=== PATIENT | male | born 1945 | race Caucasian/White ===

== ENCOUNTER 2018-06-08 13:11 | Emergency (ER) | payer OTHER ==
[2018-06-08] MEDS ORDERED: ACETAMINOPHEN EXTRA STRENGTH 500 MG TABLET ONE (14:32)
[2018-06-08] MEDS ORDERED: CEFTRIAXONE SODIUM 1 GM ONE (14:32)
[2018-06-08] MEDS ORDERED: SODIUM CHLORIDE 0.9% 50 ML IV ONE (14:32)
[2018-06-08] MEDS ORDERED: ACETAMINOPHEN 325 MG TAB ONE (14:33)
[2018-06-08 14:37] LABS: BASOPHILS % (AUTO) 0.2 % (0.0-5.0); EOSINOPHILS % (AUTO) 0.1 % (0.0-8.0); HEMATOCRIT 46.5 % (42-54); LYMPHOCYTES % (AUTO) 3.9 % (21.0-51.0); MEAN CORPUSCULAR HEMOGLOBIN 33.5 pg (27.0-33.0); MEAN CORPUSCULAR HGB CONC 33.2 g/dL (32.0-36.0); MONOCYTES % (AUTO) 7.6 % (3.0-13.0); NEUTROPHILS % (AUTO) 88.2 % (40.0-77.0); NUCLEATED RED BLOOD CELLS 0.2 % (0.0-0.19); PLATELET COUNT (AUTO) 117 K/uL (130-400); RED CELL DISTRIBUTION WIDTH 13.7 % (11.0-15.5); WHITE BLOOD COUNT (AUTO) 3.7 K/uL (4.8-10.8)
[2018-06-08 14:46] LABS: CARBON DIOXIDE 26 mmol/L (21-32); CHLORIDE 99 mmol/L (101-111); CREATININE 1.2 mg/dL (0.5-1.5); GLOMERULAR FILTR. RATE CALC 63 mL/min (>60); GLUCOSE,RANDOM 228 mg/dL (70-105); POTASSIUM 4.4 mmol/L (3.5-5.1); SODIUM SERUM 135 mmol/L (136-145); UREA NITROGEN, BLOOD 14 mg/dL (7-18)
[2018-06-08 14:57] LABS: ALANINE AMINOTRANSFERASE 74 U/L (12-78); ALBUMIN 3.9 g/dL (3.5-5.0); ASPARTATE AMINOTRANSFERASE 66 U/L (10-37); BILIRUBIN,TOTAL 0.8 mg/dL (0.2-1.0); CREATINE KINASE, TOTAL 63 U/L (21-232); MYOGLOBIN 44 ng/mL (10-92); TOTAL PROTEIN, SERUM 7.5 g/dL (6.0-8.3); TROPONIN I < 0.04 ng/mL (0.00-0.06)
[2018-06-08] MEDS ORDERED: IPRATROPIUM/ALBUTEROL SULFATE 3 ML SOLUTION IH ONE (15:35)
[2018-06-08] MEDS ORDERED: LEVOFLOXACIN 500 MG/D5W 100 ML 100 ML ONE (15:36)
[2018-06-08] MEDS ORDERED: METHYLPREDNISOLONE SOD SUCC 125MG/2ML VIAL ONE (16:23)
== END 2018-06-08 16:48 | disposition home or self-care (01) ==
LOC: EDH 13:11
DX: J20.9 Acute bronchitis, unspecified (principal); E11.9 Type 2 diabetes mellitus without complications; I10 Essential (primary) hypertension; E78.5 Hyperlipidemia, unspecified; I48.91 Unspecified atrial fibrillation; Z87.891 Personal history of nicotine dependence
CPT/HCPCS: 36415; 71046; 80053; 82550; 83605; 83874; 84484; 85025; 87040 ×2; 87804 ×2; 93005; 94640; 96365; 96375; 99284; J0696; J1956; J2930

== ENCOUNTER → 2018-08-02 | Outpatient (CLI) | payer OTHER | END | disposition home or self-care (01) | LOC: RAH 07:36 | PROVIDERS: ATTEND Family Medicine | DX: K80.20 Calculus of gallbladder without cholecystitis without obstruction (principal) | CPT/HCPCS: 76700 ==

== ENCOUNTER 2021-06-04 09:01 | Observation (INO) | payer OTHER ==
[~2021-06-04] VITALS: Ht 177.8 cm; Wt 96.9 kg
[~2021-06-04 09:01] MED LIST: APIX5TAB PO; EMPA25TA PO; GEMF600T89 PO; ICOS1CAP PO; LISI20TA24 PO; METF-446 PO; PIOG30TA70 PO; ROSU10TA28 PO; TRAZ-185 PO
[2021-06-04 09:25] LABS: BASOPHILS % (AUTO) 0.4 % (0.0-5.0); EOSINOPHILS % (AUTO) 3.7 % (0.0-8.0); HEMATOCRIT 31.4 % (42-54); MEAN CORPUSCULAR HEMOGLOBIN 25.7 pg (27.0-33.0); MEAN CORPUSCULAR HGB CONC 30.3 g/dL (32.0-36.0); MEAN CORPUSCULAR VOLUME 85.1 fL (79-99); MONOCYTES % (AUTO) 9.9 % (3.0-13.0); NEUTROPHILS % (AUTO) 80.6 % (40.0-77.0); PLATELET COUNT (AUTO) 102 K/uL (130-400); RED BLOOD CELL COUNT(AUTO) 3.69 MIL/uL (4.50-6.20); RED CELL DISTRIBUTION WIDTH 26.7 % (11.0-15.5); WHITE BLOOD COUNT (AUTO) 2.4 K/uL (4.8-10.8)
[2021-06-04 09:32] LABS: CREATININE 1.2 mg/dL (0.5-1.5); POTASSIUM 3.3 mmol/L (3.5-5.1)
[2021-06-04 09:35] LABS: INR 1.19 (0.85-1.15); PROTHROMBIN TIME 12.8 SEC (9.6-11.6)
[2021-06-04 09:41] LABS: ALBUMIN 3.5 g/dL (3.5-5.0); BILIRUBIN,TOTAL 0.9 mg/dL (0.2-1.0); TOTAL PROTEIN, SERUM 6.2 g/dL (6.0-8.3)
[2021-06-04 10:02] LABS: EOSINOPHILS % (MANUAL) 1 % (1-6); LYMPHOCYTES % (MANUAL) 4 % (22-44); MAN.DIFF COMMENT-IMPRESSION MANUAL DIFFERENTIAL; MONOCYTES % (MANUAL) 6 % (2-9); SEGMENTED NEUTROPHILS % 89 % (40-70)
[2021-06-04 10:04] LABS: PLATELET MORPHOLOGY COMMENT DECREASED
[2021-06-04] MEDS ORDERED: ONDANSETRON 4MG INJ ONE (10:39)
[2021-06-04] MEDS ORDERED: MORPHINE 2 MG SYG ONE (10:39)
[2021-06-04] MEDS ORDERED: MORPHINE 2 MG SYG IVP ONE (11:00)
[2021-06-04] MEDS ORDERED: ONDANSETRON 4MG INJ IVP ONE (11:00)
[2021-06-04 12:19] LABS: CREATINE KINASE, TOTAL 204 U/L (21-232); MYOGLOBIN 257 ng/mL (10-92)
[2021-06-04] MEDS: TRAMADOL /APAP 37.5MG/325MG TAB PO PRN ×2 (14:39→22:37)
[2021-06-04 17:42] LABS: APPEARANCE BODY FLUID SLIGHTLY CLOUDY (CLEAR); COLOR,BODY FLUID YELLOW (LT YELLOW); SPECIMENTYPE,BODY FLUID ASCITES; TOTAL VOLUME,BODY FLUID 6500 mL
[2021-06-04 17:48] LABS: BODY FLUID RBC 384 /cu. mm.; BODY FLUID WBC 75 /cu. mm.
[2021-06-04 18:24] LABS: BF LYMPHOCYTE 36 %; BF MESOTHELIAL 1 %; BF OTHER CELLS 8
[2021-06-04] MEDS ORDERED: TEMAZEPAM 15 MG CAPSULE PO PRN (19:00)
[2021-06-04] MEDS ORDERED: ACETAMINOPHEN 325 MG SUPPOSITORY RC PRN (19:00)
[2021-06-04] MEDS ORDERED: ACETAMINOPHEN 325 MG TAB PO PRN (19:00)
[2021-06-04] MEDS: CEFTRIAXONE 1G VIAL IVP SCH (19:43)
[2021-06-04] MEDS: TRAZODONE HCL 50 MG TAB PO SCH (22:07)
[2021-06-05 00:59] LABS: APPEARANCE,URINE Clear (CLEAR); BILIRUBIN,URINE Negative (NEGATIVE); COLOR,URINE Yellow (YELLOW); GLUCOSE, URINE (UA) Negative (NEGATIVE); KETONES,URINE Negative (NEGATIVE); LEUKOCYTE ESTERASE ,URINE Negative (NEGATIVE); NITRATE,URINE Negative (NEGATIVE); OCCULT BLOOD,URINE Negative (NEGATIVE); PROTEIN,URINE Negative (NEGATIVE)
[2021-06-05 06:29] LABS: CREATININE 1.2 mg/dL (0.5-1.5)
[2021-06-05 06:32] LABS: POTASSIUM 2.9 mmol/L (3.5-5.1)
[2021-06-05 06:33] LABS: % IRON SATURATION 5.6 % (30-44)
[2021-06-05] MEDS ORDERED: KCL 20 MEQ ERTAB PO ONE (06:54)
[2021-06-05] MEDS ORDERED: POTASSIUM CHLORIDE 10% ELIXIR 20 MEQ/15 ML UDCUP PO PRN (07:00)
[2021-06-05] MEDS ORDERED: POTASSIUM CHLORIDE 20MEQ/100ML 100 ML IV PRN (07:00)
[2021-06-05] MEDS ORDERED: MAGNESIUM 2GM PREMIX 50ML 50 ML IV PRN (07:00)
[2021-06-05] MEDS ORDERED: LIDOCAINE HCL-MPF 1% 2ML VIAL IV PRN (07:00)
[2021-06-05 07:17] LABS: HEMATOCRIT 28.4 % (42-54); MEAN CORPUSCULAR HEMOGLOBIN 25.7 pg (27.0-33.0); MEAN CORPUSCULAR HGB CONC 30.6 g/dL (32.0-36.0); RED BLOOD CELL COUNT(AUTO) 3.38 MIL/uL (4.50-6.20); RED CELL DISTRIBUTION WIDTH 26.9 % (11.0-15.5); WHITE BLOOD COUNT (AUTO) 1.8 K/uL (4.8-10.8)
[2021-06-05] MEDS: TRAMADOL /APAP 37.5MG/325MG TAB PO PRN ×4 (10:00→23:21)
[2021-06-05] MEDS ORDERED: COMPOUND IV MISC 1 EACH IVSOLN MISC PRN (14:00)
[2021-06-05] MEDS ORDERED: IRON SUCROSE COMPLEX 100 MG in 0.9%NACL 50ML 50 ML IV SCH (14:00)
[2021-06-05] MEDS ORDERED: FUROSEMIDE 20 MG TABLET PO ONE (14:50)
[2021-06-05] MEDS ORDERED: FUROSEMIDE 20 MG TABLET ONE (16:13)
[2021-06-05 17:47] VITALS: BP 126/69
[2021-06-05 20:00] VITALS: BP 120/68
[2021-06-05] MEDS: FUROSEMIDE 20 MG TABLET PO SCH (20:21)
[2021-06-05] MEDS: CEFTRIAXONE 1G VIAL IVP SCH (20:21)
[2021-06-05] MEDS: SPIRONOLACTONE 25 MG TAB PO SCH (20:21)
[2021-06-05] MEDS: TRAZODONE HCL 50 MG TAB PO SCH (20:21)
[2021-06-05] MEDS: KCL 20 MEQ ERTAB PO PRN (20:24)
[2021-06-06] VITALS: BP 124/78
[2021-06-06 04:00] VITALS: BP 115/78
[2021-06-06 08:08] VITALS: BP 108/63
[2021-06-06 08:14] LABS: HEPATITIS Bs ANTIGEN SCREEN P Negative (Negative)
[2021-06-06 08:25] LABS: BASOPHILS % (AUTO) 0.4 % (0.0-5.0); EOSINOPHILS % (AUTO) 5.6 % (0.0-8.0); HEMATOCRIT 28.1 % (42-54); LYMPHOCYTES % (AUTO) 5.6 % (21.0-51.0); MEAN CORPUSCULAR HEMOGLOBIN 25.8 pg (27.0-33.0); MEAN CORPUSCULAR HGB CONC 30.2 g/dL (32.0-36.0); MEAN CORPUSCULAR VOLUME 85.4 fL (79-99); MONOCYTES % (AUTO) 12.1 % (3.0-13.0); NEUTROPHILS % (AUTO) 75.9 % (40.0-77.0); PLATELET COUNT (AUTO) 105 K/uL (130-400); RED BLOOD CELL COUNT(AUTO) 3.29 MIL/uL (4.50-6.20); RED CELL DISTRIBUTION WIDTH 26.8 % (11.0-15.5); WHITE BLOOD COUNT (AUTO) 2.5 K/uL (4.8-10.8)
[2021-06-06 08:34] LABS: CREATININE 1.1 mg/dL (0.5-1.5); POTASSIUM 3.1 mmol/L (3.5-5.1)
[2021-06-06 08:49] LABS: LYMPHOCYTES % (MANUAL) 6 % (22-44); MAN.DIFF COMMENT-IMPRESSION MANUAL DIFFERENTIAL; MONOCYTES % (MANUAL) 4 % (2-9); PLATELET MORPHOLOGY COMMENT SLIGHTLY DECREASED; SEGMENTED NEUTROPHILS % 90 % (40-70)
[2021-06-06] MEDS ORDERED: IRON SUCROSE COMPLEX 100 MG in 0.9%NACL 50ML 50 ML IV SCH (09:00)
[2021-06-06] MEDS: SPIRONOLACTONE 25 MG TAB PO SCH (09:10)
[2021-06-06] MEDS: KCL 20 MEQ ERTAB PO PRN (09:10)
[2021-06-06] MEDS: FUROSEMIDE 20 MG TABLET PO SCH (09:11)
[2021-06-06] MEDS ORDERED: SPIR25TA PO (11:29)
[2021-06-06] MEDS ORDERED: FURO20TA4 PO (11:29)
[2021-06-06] MEDS ORDERED: PANT40TA54 PO (11:29)
[2021-06-06 12:00] VITALS: BP 103/63
[2021-06-06 13:13] LABS: ALPHA-1-ANTITRYPSIN 139 mg/dL (101-187)
== END 2021-06-06 14:35 | disposition home or self-care (01) ==
LOC: EDH 09:01 → EDHIP 10:11 → 3CH 06-05 17:01
PROVIDERS: ADMIT Internal Medicine; ATTEND Internal Medicine
DX: R18.8 Other ascites (principal); Z20.822 Contact with and (suspected) exposure to COVID-19; E87.70 Fluid overload, unspecified; K74.60 Unspecified cirrhosis of liver; M25.552 Pain in left hip; I10 Essential (primary) hypertension; E11.9 Type 2 diabetes mellitus without complications; E78.5 Hyperlipidemia, unspecified; I48.91 Unspecified atrial fibrillation; E78.00 Pure hypercholesterolemia, unspecified; D61.818 Other pancytopenia; E66.9 Obesity, unspecified; K44.9 Diaphragmatic hernia without obstruction or gangrene; K57.90 Diverticulosis of intestine, part unspecified, without perforation or abscess without bleeding; K76.6 Portal hypertension; K80.20 Calculus of gallbladder without cholecystitis without obstruction; K82.8 Other specified diseases of gallbladder; M16.12 Unilateral primary osteoarthritis, left hip; M47.815 Spondylosis without myelopathy or radiculopathy, thoracolumbar region; Z79.01 Long term (current) use of anticoagulants; Z86.73 Personal history of transient ischemic attack (TIA), and cerebral infarction without residual deficits; Z87.891 Personal history of nicotine dependence; Z68.30 Body mass index [BMI] 30.0-30.9, adult
CPT/HCPCS: 36415 ×3; 49083; 71045; 73502; 74176; 76705; 80048 ×2; 80053; 82042; 82103; 82140; 82390; 82550 ×3; 82728; 83516; 83540 ×2; 83550; 83690; 83735; 83874 ×3; 83880; 84132 ×2; 84484 ×3; 85025 ×2; 85027; 85378; 85610; 86038; 86704; 86706; 86708; 86804; 86850; 86900; 86901; 87071; 87205; 87340; 87522; 87635; 89051; 93005 ×2; 93306; 93356; 96365; 96375; 96376; 99285; C1729; G0378 ×44; J0696 ×2; J1756 ×2; J2405; 86215; 86235

== ENCOUNTER 2021-07-01 14:25 | Observation (INO) | payer OTHER ==
[~2021-07-01] VITALS: Ht 180.3 cm; Wt 80.6 kg
[~2021-07-01 14:25] MED LIST changes: +FURO20TA4 PO; +PANT40TA54 PO; +SPIR25TA PO
[2021-07-01] MEDS ORDERED: CEFTRIAXONE 1G VIAL IVP ONE (15:00)
[2021-07-01] MEDS ORDERED: PANTOPRAZOLE 40 MG/VIAL IVP ONE (15:00)
[2021-07-01 15:22] LABS: BASOPHILS % (AUTO) 0.4 % (0.0-5.0); EOSINOPHILS % (AUTO) 1.3 % (0.0-8.0); HEMATOCRIT 37.2 % (42-54); LYMPHOCYTES % (AUTO) 5.3 % (21.0-51.0); MEAN CORPUSCULAR HEMOGLOBIN 27.1 pg (27.0-33.0); MEAN CORPUSCULAR HGB CONC 31.2 g/dL (32.0-36.0); MEAN CORPUSCULAR VOLUME 86.9 fL (79-99); MONOCYTES % (AUTO) 8.6 % (3.0-13.0); NEUTROPHILS % (AUTO) 84.2 % (40.0-77.0); PLATELET COUNT (AUTO) 175 K/uL (130-400); RED BLOOD CELL COUNT(AUTO) 4.28 MIL/uL (4.50-6.20); RED CELL DISTRIBUTION WIDTH 27.2 % (11.0-15.5); WHITE BLOOD COUNT (AUTO) 4.5 K/uL (4.8-10.8)
[2021-07-01] MEDS ORDERED: 0.9% NACL 500ML IV.SOLN 500 ML IV ONE ×2 (15:30→16:30)
[2021-07-01 15:35] LABS: INR 1.12 (0.85-1.15); PROTHROMBIN TIME 12.1 SEC (9.6-11.6)
[2021-07-01 15:55] LABS: CREATININE 3.5 mg/dL (0.5-1.5); POTASSIUM 4.6 mmol/L (3.5-5.1)
[2021-07-01 16:00] LABS: ALBUMIN 3.7 g/dL (3.5-5.0); BILIRUBIN,TOTAL 0.5 mg/dL (0.2-1.0)
[2021-07-01] MEDS ORDERED: HYDRALAZINE 20MG/ML VIAL IV PRN (17:00)
[2021-07-01] MEDS ORDERED: ONDANSETRON 4MG INJ IVP PRN (17:00)
[2021-07-01] MEDS ORDERED: LABETALOL 20MG SYG IV PRN (17:00)
[2021-07-01] MEDS ORDERED: ALBUTEROL 0.083% 2.5 MG/3 ML INH IH PRN (17:00)
[2021-07-01] MEDS ORDERED: OCTREOTIDE ACETATE 500 MCG in 0.9%NACL 100ML 97.5 ML IV SCH (17:00)
[2021-07-01 17:14] LABS: HEMATOCRIT 33.4 % (42-54)
[2021-07-01] MEDS: LACTATED RINGERS 1000ML 1,000 ML IV SCH (17:39)
[2021-07-01 18:10] LABS: APPEARANCE,URINE Clear (CLEAR); BILIRUBIN,URINE Negative (NEGATIVE); COLOR,URINE Yellow (YELLOW); GLUCOSE, URINE (UA) 500 mg/dL (NEGATIVE); KETONES,URINE Negative (NEGATIVE); LEUKOCYTE ESTERASE ,URINE Negative (NEGATIVE); NITRATE,URINE Negative (NEGATIVE); OCCULT BLOOD,URINE Negative (NEGATIVE); PH,URINE 5.5 (5.0-8.0); PROTEIN,URINE Negative (NEGATIVE); UROBILINOGEN,URINE 0.2 mg/dL (0.2-1.0)
[2021-07-01 18:26] LABS: RBC,URINE None Seen /HPF (0-1)
[2021-07-01 18:27] LABS: BACTERIA,URINE Few /HPF (None Seen); SQUAMOUS EPITHELIAL CELL,UR None Seen /HPF (0-2)
[2021-07-01] MEDS ORDERED: OCTREOTIDE ACETATE 200 MCG/ML 5 ML VIAL ONE (19:55)
[2021-07-01] MEDS: PANTOPRAZOLE 40 MG/VIAL IVP SCH (20:07)
[2021-07-01] MEDS: INSULIN HUMULIN R 100 UNIT/ML 3ML SQ SCH (20:07)
[2021-07-01 22:45] LABS: HEMATOCRIT 33.5 % (42-54)
[2021-07-02] MEDS ORDERED: OCTREOTIDE ACETATE 200 MCG/ML 5 ML VIAL ONE ×2 (01:36→18:16)
[2021-07-02 06:27] LABS: BASOPHILS % (AUTO) 0.3 % (0.0-5.0); EOSINOPHILS % (AUTO) 0.3 % (0.0-8.0); HEMATOCRIT 31.7 % (42-54); MEAN CORPUSCULAR HEMOGLOBIN 27.1 pg (27.0-33.0); MEAN CORPUSCULAR HGB CONC 31.2 g/dL (32.0-36.0); MEAN CORPUSCULAR VOLUME 86.8 fL (79-99); MONOCYTES % (AUTO) 7.8 % (3.0-13.0); PLATELET COUNT (AUTO) 102 K/uL (130-400); RED BLOOD CELL COUNT(AUTO) 3.65 MIL/uL (4.50-6.20); RED CELL DISTRIBUTION WIDTH 27.2 % (11.0-15.5); WHITE BLOOD COUNT (AUTO) 3.2 K/uL (4.8-10.8)
[2021-07-02 06:39] LABS: CREATININE 2.7 mg/dL (0.5-1.5); PHOSPHORUS 3.8 mg/dL (2.5-4.9); POTASSIUM 4.8 mmol/L (3.5-5.1)
[2021-07-02] MEDS: LACTATED RINGERS 1000ML 1,000 ML IV SCH ×3 (07:00→18:07)
[2021-07-02] MEDS: INSULIN HUMULIN R 100 UNIT/ML 3ML SQ SCH ×4 (07:30→20:40)
[2021-07-02] MEDS: CEFEPIME HCL 1 GM VIAL IVP SCH (07:58)
[2021-07-02] MEDS: PANTOPRAZOLE 40 MG/VIAL IVP SCH ×2 (08:35→20:33)
[2021-07-02 10:45] LABS: HEMATOCRIT 37.5 % (42-54)
[2021-07-02] MEDS ORDERED: LIDOCAINE HCL 1% 20 ML VIAL ONE (14:11)
[2021-07-02] MEDS ORDERED: ALBUMIN (HUMAN) 25% 200 ML IV ONE (14:12)
[2021-07-02] MEDS ORDERED: SODIUM BICARB 50MEQ 50ML VIAL 50 ML ONE (14:12)
[2021-07-02] MEDS: METRONIDAZOLE 500MG/100ML BAG 100 ML IVPB SCH ×2 (15:44→20:34)
[2021-07-02] MEDS: PROPRANOLOL HCL 10 MG TAB PO SCH (16:30)
[2021-07-02 16:50] LABS: APPEARANCE BODY FLUID CLEAR (CLEAR); BODY FLUID WBC 140 /cu. mm.; COLOR,BODY FLUID YELLOW (LT YELLOW); SPECIMENTYPE,BODY FLUID ASCITES; TOTAL VOLUME,BODY FLUID 6000 mL
[2021-07-02 16:51] LABS: BODY FLUID RBC 354 /cu. mm.
[2021-07-02 16:56] LABS: BF LYMPHOCYTE 5 %; BF MESOTHELIAL 2 %; BF OTHER CELLS 4
[2021-07-02] MEDS: ALBUMIN (HUMAN) 25% 100 ML IV SCH (20:34)
[2021-07-02] MEDS: MIDODRINE HCL 5 MG TABLET PO SCH (21:27)
[2021-07-02] MEDS: TRAZODONE HCL 50 MG TAB PO SCH (21:52)
[2021-07-03] VITALS (18 sets, daily range): BP systolic 96–124; BP diastolic 37–72
[2021-07-03] MEDS: PROPRANOLOL HCL 10 MG TAB PO SCH ×3 (00:06→16:30)
[2021-07-03] MEDS ORDERED: OCTREOTIDE ACETATE 200 MCG/ML 5 ML VIAL ONE (04:39)
[2021-07-03] MEDS: METRONIDAZOLE 500MG/100ML BAG 100 ML IVPB SCH ×2 (06:00→17:38)
[2021-07-03] MEDS: LACTATED RINGERS 1000ML 1,000 ML IV SCH (06:39)
[2021-07-03] MEDS: INSULIN HUMULIN R 100 UNIT/ML 3ML SQ SCH ×4 (07:30→20:59)
[2021-07-03] MEDS: ATORVASTATIN 40 MG TABLET PO SCH (08:06)
[2021-07-03] MEDS: MIDODRINE HCL 5 MG TABLET PO SCH ×3 (08:06→20:56)
[2021-07-03] MEDS: CEFEPIME HCL 1 GM VIAL IVP SCH (08:07)
[2021-07-03] MEDS: PANTOPRAZOLE 40 MG/VIAL IVP SCH ×2 (08:08→20:57)
[2021-07-03] MEDS: ALBUMIN (HUMAN) 25% 100 ML IV SCH ×2 (09:00→14:00)
[2021-07-03] MEDS ORDERED: PROPOFOL 10 MG/ML 20ML VIAL IV ONE ×2 (11:43→11:54)
[2021-07-03] MEDS ORDERED: KETAMINE 50MG/ML SYRINGE 50 MG/ML DISP.SYRIN IV ONE (11:45)
[2021-07-03] MEDS ORDERED: EPHEDRINE SULFATE 50 MG/ML AMPULE ONE (11:45)
[2021-07-03] MEDS: TRAZODONE HCL 50 MG TAB PO SCH (20:57)
[2021-07-03] MEDS ORDERED: ACETAMINOPHEN 325 MG TAB PO PRN (23:30)
[2021-07-04] VITALS: BP 100/66
[2021-07-04] MEDS: PROPRANOLOL HCL 10 MG TAB PO SCH ×2 (00:44→09:28)
[2021-07-04] MEDS: METRONIDAZOLE 500MG/100ML BAG 100 ML IVPB SCH ×2 (00:45→09:28)
[2021-07-04 03:59] VITALS: BP 106/62
[2021-07-04 05:17] LABS: HEMATOCRIT 31.5 % (42-54); MEAN CORPUSCULAR HEMOGLOBIN 27.2 pg (27.0-33.0); MEAN CORPUSCULAR HGB CONC 30.8 g/dL (32.0-36.0); MEAN CORPUSCULAR VOLUME 88.2 fL (79-99); PLATELET COUNT (AUTO) 91 K/uL (130-400); RED BLOOD CELL COUNT(AUTO) 3.57 MIL/uL (4.50-6.20); RED CELL DISTRIBUTION WIDTH 26.9 % (11.0-15.5); WHITE BLOOD COUNT (AUTO) 2.3 K/uL (4.8-10.8)
[2021-07-04 05:24] LABS: CREATININE 1.4 mg/dL (0.5-1.5); POTASSIUM 3.9 mmol/L (3.5-5.1)
[2021-07-04 06:21] LABS: LYMPHOCYTES % (MANUAL) 14 % (22-44); MONOCYTES % (MANUAL) 1 % (2-9); SEGMENTED NEUTROPHILS % 85 % (40-70)
[2021-07-04 06:24] LABS: MAN.DIFF COMMENT-IMPRESSION MANUAL DIFFERENTIAL
[2021-07-04 06:25] LABS: PLATELET MORPHOLOGY COMMENT DECREASED
[2021-07-04] MEDS: INSULIN HUMULIN R 100 UNIT/ML 3ML SQ SCH (06:30)
[2021-07-04 07:30] VITALS: BP 109/66
[2021-07-04] MEDS: LACTATED RINGERS 1000ML 1,000 ML IV SCH ×2 (08:31→09:19)
[2021-07-04] MEDS: ALBUMIN (HUMAN) 25% 100 ML IV SCH ×2 (08:32→09:00)
[2021-07-04] MEDS: ATORVASTATIN 40 MG TABLET PO SCH (09:28)
[2021-07-04] MEDS: CEFEPIME HCL 1 GM VIAL IVP SCH (09:28)
[2021-07-04] MEDS: PANTOPRAZOLE 40 MG/VIAL IVP SCH (09:28)
[2021-07-04] MEDS: MIDODRINE HCL 5 MG TABLET PO SCH (09:28)
== END 2021-07-04 13:42 | disposition home or self-care (01) ==
LOC: EDH 14:25 → EDHIP 16:42 → 4DH 07-03 04:21
PROVIDERS: ADMIT Internal Medicine Critical Care Medicine; ATTEND Internal Medicine Critical Care Medicine
DX: K92.2 Gastrointestinal hemorrhage, unspecified (principal); Z20.822 Contact with and (suspected) exposure to COVID-19; N17.9 Acute kidney failure, unspecified; I95.9 Hypotension, unspecified; K74.60 Unspecified cirrhosis of liver; I10 Essential (primary) hypertension; I48.20 Chronic atrial fibrillation, unspecified; E11.9 Type 2 diabetes mellitus without complications; E78.5 Hyperlipidemia, unspecified; E78.00 Pure hypercholesterolemia, unspecified; D62 Acute posthemorrhagic anemia; E86.0 Dehydration; E87.1 Hypo-osmolality and hyponatremia; I85.10 Secondary esophageal varices without bleeding; R18.8 Other ascites; Z87.891 Personal history of nicotine dependence; Z79.01 Long term (current) use of anticoagulants; Z79.84 Long term (current) use of oral hypoglycemic drugs; Z79.899 Other long term (current) drug therapy; Z98.890 Other specified postprocedural states
CPT/HCPCS: 36415 ×3; 43244; 49083; 71045; 76705; 80048 ×2; 80053; 81001; 82140; 82270; 82948 ×9; 83735 ×2; 83880 ×2; 84100; 84145; 84484; 85014 ×3; 85018 ×3; 85025 ×2; 85027; 85610; 86850; 86900; 86901; 87071; 87205; 87635; 89051; 93005; 96361 ×2; 96365; 96366 ×4; 96368; 96375 ×2; 96376 ×4; 97039 ×3; 97116; 97161; 99291; A4215; A4222; A4223; A4620; A4657; C1729; C9113 ×7; G0378 ×66; J0692 ×2; J0696; J1815 ×2; J2354 ×5; J2704 ×2; J3490 ×8; J7030; J7120 ×2; P9046 ×2

== ENCOUNTER → 2021-07-22 | Outpatient (CLI) | payer OTHER ==
[~2021-07-22] MED LIST changes: +ALBUMIN (HUMAN) 25% 200 ML IV SCH; +FURO40TA5 PO; +GABA300S PO; +IRON1CAP32 PO; +LACT10SO5 PO; +LIDOCAINE HCL MPF 1% 5ML VIAL ONE; +METO10TA3 PO; +ROSU20TA31 PO; +SODI5POW2 PO; +SPIR50TA PO; +TRAZ-187 PO
[2021-07-22 08:35] LABS: BASOPHILS % (AUTO) 0.5 % (0.0-5.0); EOSINOPHILS % (AUTO) 3.9 % (0.0-8.0); HEMATOCRIT 34.7 % (42-54); LYMPHOCYTES % (AUTO) 5.4 % (21.0-51.0); MEAN CORPUSCULAR HEMOGLOBIN 29.2 pg (27.0-33.0); MEAN CORPUSCULAR VOLUME 91.3 fL (79-99); MONOCYTES % (AUTO) 10.3 % (3.0-13.0); NEUTROPHILS % (AUTO) 79.4 % (40.0-77.0); PLATELET COUNT (AUTO) 144 K/uL (130-400); RED CELL DISTRIBUTION WIDTH 25.9 % (11.0-15.5); WHITE BLOOD COUNT (AUTO) 3.9 K/uL (4.8-10.8)
[2021-07-22 08:48] LABS: INR 1.07 (0.85-1.15); PROTHROMBIN TIME 11.6 SEC (9.6-11.6)
[2021-07-22 08:56] LABS: ALBUMIN 3.6 g/dL (3.5-5.0); BILIRUBIN,TOTAL 0.6 mg/dL (0.2-1.0); CREATININE 1.5 mg/dL (0.5-1.5); POTASSIUM 4.9 mmol/L (3.5-5.1); TOTAL PROTEIN, SERUM 6.4 g/dL (6.0-8.3)
[2021-07-22 12:45] LABS: ALBUMIN,BODY FLUID 1.2 g/dL
[2021-07-22 14:06] LABS: SPECIMENTYPE,BODY FLUID ASCITES
[2021-07-22 14:07] LABS: APPEARANCE BODY FLUID CLEAR (CLEAR); COLOR,BODY FLUID YELLOW (LT YELLOW); TOTAL VOLUME,BODY FLUID 9000 mL
[2021-07-22 14:08] LABS: BODY FLUID RBC 275 /cu. mm.; BODY FLUID WBC 60 /cu. mm.
[2021-07-22 14:16] LABS: BF LYMPHOCYTE 46 %; BF MESOTHELIAL 30 %
== END | disposition home or self-care (01) ==
LOC: RAH 07:15
PROVIDERS: ATTEND Internal Medicine Gastroenterology
DX: R18.8 Other ascites (principal); K74.60 Unspecified cirrhosis of liver; I10 Essential (primary) hypertension; E78.5 Hyperlipidemia, unspecified; I48.91 Unspecified atrial fibrillation; E11.9 Type 2 diabetes mellitus without complications; E78.00 Pure hypercholesterolemia, unspecified; E66.9 Obesity, unspecified; M16.12 Unilateral primary osteoarthritis, left hip; Z86.73 Personal history of transient ischemic attack (TIA), and cerebral infarction without residual deficits; Z98.890 Other specified postprocedural states; Z87.891 Personal history of nicotine dependence; Z68.30 Body mass index [BMI] 30.0-30.9, adult; Z79.01 Long term (current) use of anticoagulants; Z79.899 Other long term (current) drug therapy
CPT/HCPCS: 36415; 49083; 80053; 82042; 84157; 85025; 85610; 87071; 87205; 88112; 88305; 88341; 88342; 89051; C1729; J3490; P9046; 96365

== ENCOUNTER → 2021-09-02 | Outpatient (CLI) | payer OTHER ==
[~2021-09-02] MED LIST changes: -APIX5TAB PO; -EMPA25TA PO; -FURO20TA4 PO; -FURO40TA5 PO; -GABA300S PO; -LISI20TA24 PO; -METF-446 PO; -PIOG30TA70 PO; -ROSU10TA28 PO; -ROSU20TA31 PO; -SODI5POW2 PO; -SPIR25TA PO; -SPIR50TA PO; -TRAZ-185 PO; -TRAZ-187 PO
[2021-09-02 10:39] LABS: MEAN CORPUSCULAR HEMOGLOBIN 32.1 pg (27.0-33.0); MEAN CORPUSCULAR HGB CONC 30.8 g/dL (32.0-36.0); PLATELET COUNT (AUTO) 129 K/uL (130-400); RED BLOOD CELL COUNT(AUTO) 3.46 MIL/uL (4.50-6.20); RED CELL DISTRIBUTION WIDTH 21.5 % (11.0-15.5); WHITE BLOOD COUNT (AUTO) 3.3 K/uL (4.8-10.8)
[2021-09-02 10:49] LABS: INR 1.1 (0.85-1.15); PROTHROMBIN TIME 11.9 SEC (9.6-11.6)
[2021-09-02 10:58] LABS: ALBUMIN 3.6 g/dL (3.5-5.0); BILIRUBIN,TOTAL 1.4 mg/dL (0.2-1.0); CREATININE 1.8 mg/dL (0.5-1.5); TOTAL PROTEIN, SERUM 6.3 g/dL (6.0-8.3)
[2021-09-02 11:26] LABS: LYMPHOCYTES % (MANUAL) 8 % (22-44); MAN.DIFF COMMENT-IMPRESSION MANUAL DIFFERENTIAL; MONOCYTES % (MANUAL) 7 % (2-9); PLATELET MORPHOLOGY COMMENT ADEQUATE; SEGMENTED NEUTROPHILS % 85 % (40-70)
[2021-09-02 13:55] LABS: APPEARANCE BODY FLUID CLEAR (CLEAR); COLOR,BODY FLUID YELLOW (LT YELLOW); SPECIMENTYPE,BODY FLUID ASCITES; TOTAL VOLUME,BODY FLUID 1800 mL
[2021-09-02 13:56] LABS: BODY FLUID RBC 214 /cu. mm.; BODY FLUID WBC 127 /cu. mm.
[2021-09-02 14:04] LABS: BF LYMPHOCYTE 22 %; BF MESOTHELIAL 63 %; BF MONOCYTE 10 %
== END | disposition home or self-care (01) ==
LOC: RAH 09:42
PROVIDERS: ATTEND Internal Medicine Gastroenterology
DX: R18.8 Other ascites (principal); K74.60 Unspecified cirrhosis of liver; I10 Essential (primary) hypertension; E78.5 Hyperlipidemia, unspecified; E11.9 Type 2 diabetes mellitus without complications; I48.91 Unspecified atrial fibrillation; E78.00 Pure hypercholesterolemia, unspecified; E66.9 Obesity, unspecified; M16.12 Unilateral primary osteoarthritis, left hip; Z98.890 Other specified postprocedural states; Z87.891 Personal history of nicotine dependence; Z68.30 Body mass index [BMI] 30.0-30.9, adult; Z79.899 Other long term (current) drug therapy; Z79.01 Long term (current) use of anticoagulants
CPT/HCPCS: 36415; 49083; 80053; 85025; 85610; 87071; 87205; 89051; C1729; J3490; P9046; 96365

== ENCOUNTER 2021-09-03 19:43 | Emergency (ER) | payer OTHER ==
[~2021-09-03] VITALS: Ht 172.7 cm; Wt 81.6 kg
[~2021-09-03 19:43] MED LIST changes: -ALBUMIN (HUMAN) 25% 200 ML IV SCH; -LIDOCAINE HCL MPF 1% 5ML VIAL ONE
[2021-09-03 19:46] VITALS: BP 123/68
[2021-09-03 20:56] LABS: EOSINOPHILS % (AUTO) 1.4 % (0.0-8.0); LYMPHOCYTES % (AUTO) 3.6 % (21.0-51.0); MEAN CORPUSCULAR HEMOGLOBIN 32.4 pg (27.0-33.0); MEAN CORPUSCULAR HGB CONC 31.9 g/dL (32.0-36.0); MEAN CORPUSCULAR VOLUME 101.6 fL (79-99); MONOCYTES % (AUTO) 11.6 % (3.0-13.0); PLATELET COUNT (AUTO) 104 K/uL (130-400); RED BLOOD CELL COUNT(AUTO) 3.15 MIL/uL (4.50-6.20); RED CELL DISTRIBUTION WIDTH 20.7 % (11.0-15.5); WHITE BLOOD COUNT (AUTO) 2.8 K/uL (4.8-10.8)
[2021-09-03 21:06] LABS: CARBON DIOXIDE 24 mmol/L (21-32); CHLORIDE 102 mmol/L (101-111); CREATININE 1.9 mg/dL (0.5-1.5); GLOMERULAR FILTR. RATE CALC 37 mL/min (>60); GLUCOSE,RANDOM 262 mg/dL (70-105); POTASSIUM 3.6 mmol/L (3.5-5.1); SODIUM SERUM 138 mmol/L (136-145); UREA NITROGEN, BLOOD 35 mg/dL (7-18)
[2021-09-03] MEDS ORDERED: LACTULOSE 20 GM/30 ML UDCUP ONE (21:07)
[2021-09-03 21:13] LABS: ALANINE AMINOTRANSFERASE 32 U/L (12-78); ALBUMIN 3.6 g/dL (3.5-5.0); ALCOHOL, BLOOD < 3 mg/dL (0-10); ASPARTATE AMINOTRANSFERASE 37 U/L (10-37); BILIRUBIN,DIRECT 0.5 mg/dL (0.0-0.3); BILIRUBIN,TOTAL 1.1 mg/dL (0.2-1.0); TOTAL PROTEIN, SERUM 5.9 g/dL (6.0-8.3)
[2021-09-03 21:20] LABS: EOSINOPHILS % (MANUAL) 4 % (1-6); LYMPHOCYTES % (MANUAL) 4 % (22-44); MONOCYTES % (MANUAL) 6 % (2-9); SEGMENTED NEUTROPHILS % 86 % (40-70)
[2021-09-03 21:21] LABS: MAN.DIFF COMMENT-IMPRESSION MANUAL DIFFERENTIAL; PLATELET MORPHOLOGY COMMENT SLIGHTLY DECREASED
[2021-09-03] MEDS ORDERED: LACTULOSE 20 GM/30 ML UDCUP PO ONE (22:00)
== END 2021-09-03 22:19 | disposition home or self-care (01) ==
LOC: EDH 19:43
DX: E72.20 Disorder of urea cycle metabolism, unspecified (principal); K74.60 Unspecified cirrhosis of liver; E78.00 Pure hypercholesterolemia, unspecified; I10 Essential (primary) hypertension; K21.9 Gastro-esophageal reflux disease without esophagitis; Z79.899 Other long term (current) drug therapy
CPT/HCPCS: 36415; 80053; 80076; 82140; 83735; 85025

== ENCOUNTER 2021-09-11 21:02 | Emergency (ER) | payer OTHER ==
[2021-09-11] MEDS ORDERED: ACETAMINOPHEN 325 MG TAB PO ONE (22:00)
[2021-09-11 22:50] LABS: BASOPHILS % (AUTO) 0.3 % (0.0-5.0); EOSINOPHILS % (AUTO) 2.1 % (0.0-8.0); HEMATOCRIT 34.8 % (42-54); LYMPHOCYTES % (AUTO) 3.3 % (21.0-51.0); MEAN CORPUSCULAR HEMOGLOBIN 32.8 pg (27.0-33.0); MEAN CORPUSCULAR HGB CONC 32.5 g/dL (32.0-36.0); MEAN CORPUSCULAR VOLUME 100.9 fL (79-99); MONOCYTES % (AUTO) 10.7 % (3.0-13.0); NEUTROPHILS % (AUTO) 83.3 % (40.0-77.0); PLATELET COUNT (AUTO) 75 K/uL (130-400); RED BLOOD CELL COUNT(AUTO) 3.45 MIL/uL (4.50-6.20); RED CELL DISTRIBUTION WIDTH 19.3 % (11.0-15.5); WHITE BLOOD COUNT (AUTO) 3.4 K/uL (4.8-10.8)
[2021-09-11 22:58] LABS: CREATININE 1.7 mg/dL (0.5-1.5); POTASSIUM 3.1 mmol/L (3.5-5.1)
[2021-09-11 23:03] LABS: ALBUMIN 3.4 g/dL (3.5-5.0); TOTAL PROTEIN, SERUM 5.9 g/dL (6.0-8.3)
[2021-09-11] MEDS ORDERED: POTASSIUM BICARB/CIT AC 25 MEQ TABLET.EFF PO ONE (23:30)
[2021-09-12 00:23] VITALS: BP 112/75
== END 2021-09-12 01:20 | disposition home or self-care (01) ==
LOC: EDH 21:02
DX: N28.9 Disorder of kidney and ureter, unspecified (principal); E87.6 Hypokalemia; E11.9 Type 2 diabetes mellitus without complications; K74.60 Unspecified cirrhosis of liver; K21.9 Gastro-esophageal reflux disease without esophagitis; E78.00 Pure hypercholesterolemia, unspecified; I10 Essential (primary) hypertension; Z79.899 Other long term (current) drug therapy; Z98.890 Other specified postprocedural states
CPT/HCPCS: 36415; 70450; 71045; 72125; 72131; 80053; 82140; 84484; 85025

== ENCOUNTER → 2021-09-20 | Outpatient (CLI) | payer OTHER ==
[~2021-09-20] MED LIST changes: +ALBUMIN (HUMAN) 25% 200 ML IV SCH; +LIDOCAINE HCL 1% 20 ML VIAL ONE; +LIDOP TP; +ORPH-43 PO; +POTA-187 PO
[2021-09-20 13:19] LABS: APPEARANCE BODY FLUID CLEAR (CLEAR); BODY FLUID RBC 178 /cu. mm.; BODY FLUID WBC 164 /cu. mm.; COLOR,BODY FLUID YELLOW (LT YELLOW); SPECIMENTYPE,BODY FLUID ASCITES; TOTAL VOLUME,BODY FLUID 9000 mL
[2021-09-20 13:49] LABS: BF LYMPHOCYTE 8 %; BF MESOTHELIAL 72 %; BF MONOCYTE 8 %; BF OTHER CELLS 5
== END | disposition home or self-care (01) ==
LOC: RAH 09:49
PROVIDERS: ATTEND Internal Medicine Gastroenterology
DX: R18.8 Other ascites (principal); K74.60 Unspecified cirrhosis of liver; I10 Essential (primary) hypertension; E11.9 Type 2 diabetes mellitus without complications; K21.9 Gastro-esophageal reflux disease without esophagitis; E78.00 Pure hypercholesterolemia, unspecified; Z79.899 Other long term (current) drug therapy; Z98.890 Other specified postprocedural states; Z79.01 Long term (current) use of anticoagulants
CPT/HCPCS: 49083; 87071; 87205; 89051; C1729; P9046; 96365

== ENCOUNTER 2021-09-24 02:33 | Emergency (ER) | payer OTHER ==
[~2021-09-24 02:33] MED LIST changes: -ALBUMIN (HUMAN) 25% 200 ML IV SCH; -LIDOCAINE HCL 1% 20 ML VIAL ONE; -LIDOP TP; -ORPH-43 PO; -POTA-187 PO
[2021-09-24] MEDS ORDERED: LIDOP TP (03:16)
[2021-09-24] MEDS ORDERED: ORPH-43 PO (03:16)
[2021-09-24] MEDS ORDERED: LIDOCAINE 5% TOPICAL PATCH TP ONE (03:30)
[2021-09-24] MEDS ORDERED: KETOROLAC 30MG VIAL (30MG/ML) IM ONE (03:30)
[2021-09-24] MEDS ORDERED: ORPHENADRINE CITRATE 30 MG/ML ML IM ONE (03:30)
[2021-09-24 03:44] VITALS: BP 122/56
[2021-09-24] MEDS ORDERED: POTA-187 PO (17:02)
== END 2021-09-24 03:30 | disposition home or self-care (01) ==
LOC: EDH 02:33
DX: M54.50 Low back pain, unspecified (principal); M62.838 Other muscle spasm; K21.9 Gastro-esophageal reflux disease without esophagitis; E78.00 Pure hypercholesterolemia, unspecified; I10 Essential (primary) hypertension; Z79.899 Other long term (current) drug therapy
CPT/HCPCS: 36415; 71045; 80053; 83735; 84484; 85025; 93005; J1885

== ENCOUNTER 2021-09-30 03:19 | Emergency (ER) | payer OTHER ==
[~2021-09-30] VITALS: Ht 180.3 cm; Wt 95.3 kg
[~2021-09-30 03:19] MED LIST changes: +LIDOP TP; +ORPH-43 PO; +POTA-187 PO
[2021-09-30 03:49] LABS: BASOPHILS % (AUTO) 0.1 % (0.0-5.0); EOSINOPHILS % (AUTO) 1.1 % (0.0-8.0); HEMATOCRIT 40.6 % (42-54); LYMPHOCYTES % (AUTO) 2.7 % (21.0-51.0); MEAN CORPUSCULAR HEMOGLOBIN 32.8 pg (27.0-33.0); MEAN CORPUSCULAR HGB CONC 33.5 g/dL (32.0-36.0); MEAN CORPUSCULAR VOLUME 97.8 fL (79-99); MONOCYTES % (AUTO) 6.2 % (3.0-13.0); NEUTROPHILS % (AUTO) 89.3 % (40.0-77.0); PLATELET COUNT (AUTO) 139 K/uL (130-400); RED BLOOD CELL COUNT(AUTO) 4.15 MIL/uL (4.50-6.20); RED CELL DISTRIBUTION WIDTH 17.2 % (11.0-15.5); WHITE BLOOD COUNT (AUTO) 11.8 K/uL (4.8-10.8)
[2021-09-30] MEDS ORDERED: MIDODRINE HCL 5 MG TABLET PO SCH (04:00)
[2021-09-30 04:03] LABS: ALBUMIN 2.8 g/dL (3.5-5.0)
[2021-09-30 04:04] LABS: TOTAL PROTEIN, SERUM 5.1 g/dL (6.0-8.3)
[2021-09-30 04:05] LABS: BILIRUBIN,TOTAL 0.8 mg/dL (0.2-1.0); CREATININE 2.6 mg/dL (0.5-1.5)
[2021-09-30 04:06] LABS: POTASSIUM 2.7 mmol/L (3.5-5.1)
[2021-09-30] MEDS ORDERED: KCL 20 MEQ ERTAB PO ONE (04:30)
[2021-09-30 04:42] LABS: APPEARANCE,URINE Clear (CLEAR); BILIRUBIN,URINE Negative (NEGATIVE); COLOR,URINE Yellow (YELLOW); GLUCOSE, URINE (UA) 500 mg/dL (NEGATIVE); KETONES,URINE Trace mg/dL (NEGATIVE); LEUKOCYTE ESTERASE ,URINE Negative (NEGATIVE); NITRATE,URINE Negative (NEGATIVE); OCCULT BLOOD,URINE Negative (NEGATIVE); PROTEIN,URINE Negative (NEGATIVE); UROBILINOGEN,URINE 0.2 mg/dL (0.2-1.0)
[2021-09-30 04:55] LABS: RBC,URINE 0-1 /HPF (0-1)
[2021-09-30 04:56] LABS: BACTERIA,URINE None Seen /HPF (None Seen)
[2021-09-30 04:57] LABS: SQUAMOUS EPITHELIAL CELL,UR Few /HPF (0-2)
[2021-09-30] MEDS ORDERED: POTA20PA32 PO (05:27)
[2021-09-30 05:47] VITALS: BP 96/51
== END 2021-09-30 06:41 | disposition home or self-care (01) ==
LOC: EDH 03:19
DX: E87.6 Hypokalemia (principal); K74.60 Unspecified cirrhosis of liver; E11.9 Type 2 diabetes mellitus without complications; I48.91 Unspecified atrial fibrillation; Z79.899 Other long term (current) drug therapy
CPT/HCPCS: 36415; 70450; 80053; 81001; 82140; 83690; 83735; 84484; 85025; 93005